=== PATIENT | male | born 1990 | race Caucasian/White ===

== ENCOUNTER 2021-03-16 14:21 | Emergency (ER) | payer SELFPAY ==
[2021-03-16 14:31] VITALS: BMI 29.5
[2021-03-16] MEDS ORDERED: KETOROLAC TROMETHAMINE 30 MG/1 ML VIAL ONE (15:01)
[2021-03-16] MEDS ORDERED: KETOROLAC TROMETHAMINE 30 MG/1 ML VIAL IM ONE (15:02)
[2021-03-16 17:40] VITALS: BP 129/83; PULSE 63; TEMP 97.6
[2021-03-16 18:13] LABS: PH,URINE 7.5 (5.0-8.0); URINE APPEARANCE CLEAR; URINE BILIRUBIN NEGATIVE (NEGATIVE); URINE COLOR YELLOW; URINE GLUCOSE (UA) NEGATIVE (NEGATIVE); URINE KETONE TRACE (NEGATIVE); URINE LEUK ESTERASE NEGATIVE (NEGATIVE); URINE NITRITE NEGATIVE (NEGATIVE); URINE PROTEIN TRACE (NEGATIVE); URINE UROBILINOGEN 0.2 mg/dL (0.2-1.0)
[2021-03-16] MEDS ORDERED: AZITHROMYCIN 500 MG TABLET PO ONE (18:19)
[2021-03-16] MEDS ORDERED: AZITHROMYCIN 250 MG TABLET ONE (18:27)
[2021-03-16] MEDS ORDERED: cefTRIAXone SODIUM 1 GM VIAL ONE (18:27)
== END 2021-03-16 19:05 | disposition home or self-care (01) ==
LOC: JER 14:21
PROC: 3E02329 Introduction of Other Anti-infective into Muscle, Percutaneous Approach (ICD-10-PCS; principal; 2021-03-16)
PROC: 3E0233Z Introduction of Anti-inflammatory into Muscle, Percutaneous Approach (ICD-10-PCS; 2021-03-16)
DX: N50.812 Left testicular pain (principal)
CPT/HCPCS: 36415; 76870-TC; 81003; 87086; 87491; 87591; 99284-25